=== PATIENT | female | born 1985 | race Two or more races ===

== ENCOUNTER 2020-08-26 17:40 | Emergency (ER) | payer OTHER ==
[~2020-08-26] VITALS: Ht 147.3 cm; Wt 93.9 kg
[2020-08-26 19:10] VITALS: BP 152/101
== END 2020-08-26 19:49 | disposition home or self-care (01) ==
LOC: ER 17:40
DX: S83.92XA Sprain of unspecified site of left knee, initial encounter (principal); Z88.0 Allergy status to penicillin; X50.1XXA Overexertion from prolonged static or awkward postures, initial encounter; Y93.89 Activity, other specified; Y92.89 Other specified places as the place of occurrence of the external cause; Y99.8 Other external cause status

== ENCOUNTER 2024-04-06 15:20 | Emergency (ER) | payer SELFPAY ==
[~2024-04-06] VITALS: Ht 147.3 cm; Wt 100.3 kg
[2024-04-06 16:17] LABS: Urine Bacteria FEW /hpf (None Seen); Urine Blood 2+ /uL (Negative); Urine Clarity Clear (Clear); Urine Color Colorless (Yellow); Urine Mucus FEW (None Seen); Urine Protein, UAD Negative (Negative); Urine Specific Gravity 1.004 (1.001-1.035); Urine Urobilinogen Normal (Negative); Urine WBC 4 /hpf (0 - 5); Urine pH 6.5 (5.0-9.0)
[2024-04-06 16:25] VITALS: PULSE 79; RESP 16; O2SAT 98
[2024-04-06 16:25] LABS: Basophils # (auto) 0.1 10 ^3/uL (0-0.2); Basophils % (auto) 0.5 % (0.0-2.0); Eosinophils # (auto) 0.1 10 ^3/uL (0-0.8); Eosinophils % (auto) 0.5 % (0.0-7.0); Hematocrit 42.3 % (36.0-46.0); Hemoglobin 14.5 g/dL (12.2-16.2); Lymphocytes # (auto) 2.4 10 ^3/uL (0.4-5.4); Lymphocytes % (auto) 22.8 % (10.0-50.0); Mean Corpuscular Hemoglobin 29.6 pg (28.0-32.0); Mean Corpuscular Hgb Conc. 34.2 g/dL (32.0-36.0); Mean Corpuscular Volume 86.6 fL (80.0-100.0); Monocytes # (auto) 0.3 10 ^3/uL (0-1.3); Monocytes % (auto) 2.9 % (0.0-12.0); Neutrophils # (auto) 7.6 10 ^3/uL (1.6-8.6); Neutrophils % (auto) 73.3 % (37.0-80.0); Platelet Count (auto) 385 10^3/uL (140-450); Red Blood Cells 4.88 10^6/uL (4.0-5.20); Red Cell Distribution Width 13.3 % (11.8-14.3); White Blood Cell 10.4 10^3/uL (4.4-10.8)
[2024-04-06] MEDS: ONDANSETRON ODT 4 MG TAB PO ONE (16:28)
[2024-04-06] MEDS: MECLIZINE HCL 25 MG TAB PO ONE (16:28)
[2024-04-06] MEDS: NITROGLYCERIN 0.4 MG SL TAB SL ONE (16:32)
[2024-04-06 16:35] LABS: Alanine Aminotransferase 35 U/L (7-40); Albumin 4.6 g/dL (3.2-4.8); Alkaline Phosphatase 66 U/L (46-116); Anion Gap 9 (5-15); Aspartate Aminotransferase 25 U/L (13-40); BUN/Creatinine Ratio 15.4 (10.0-20.0); Blood Urea Nitrogen 14 mg/dL (9-23); Calcium 10.2 mg/dL (8.7-10.4); Carbon Dioxide 25 mmol/L (20-31); Chloride 106 mmol/L (98-107); Glucose 93 mg/dL (74-106); Sodium 140 mmol/L (136-145)
[2024-04-06 16:36] LABS: Bilirubin, Total 0.4 mg/dL (0.2-1.0); Total Protein 7.7 g/dL (5.7-8.2)
[2024-04-06] MEDS ORDERED: NITR-87 PO (20:18)
[2024-04-06 20:36] VITALS: PULSE 69; RESP 18; TEMP 98.3; O2SAT 97
[2024-04-06 20:37] VITALS: BP 153/91
[2024-04-06] MEDS: cefTRIAXone 1GM/50ML D5W 50 ML IV ONE (21:04)
[2024-04-06] MEDS ORDERED: MECL1TAB42 PO (21:32)
== END 2024-04-06 21:47 | disposition home or self-care (01) ==
LOC: ER 15:20
DX: N39.0 Urinary tract infection, site not specified (principal); I10 Essential (primary) hypertension; R42 Dizziness and giddiness; Z88.0 Allergy status to penicillin
CPT/HCPCS: 36415; 70450; 71045; 80053; 81001; 81025; 82962; 84484; 85025; 93005; 96365; 99285; J0696; J8597; Q0162